=== PATIENT | male | born 1955 | race American Indian/Alaskan Native ===

== ENCOUNTER 2021-04-09 18:24 | Emergency (ER) | payer MEDICARE ==
[2021-04-09 19:41] LABS: Bilirubin,Urine NEG (Negative); Blood,Urine LG (Negative); Color,Urine Yellow (Yellow); Mucus,Urine 3+ /HPF
[2021-04-09 20:13] LABS: Basophils # (Auto) 0.1 K/mm3 (0.0-0.1); Basophils % (Auto) 1.2 % (0.0-1.8); Eosinophils % (Auto) 0.7 % (0.0-4.3); Hematocrit 42.9 % (35.5-45.6); Hemoglobin 14.2 gm/dl (11.8-15.2); Lymphocytes # (Auto) 1.2 K/mm3 (1.2-5.4); Lymphocytes % (Auto) 18.7 % (13.4-35.0); Mean Corpuscular HGB Conc 33 % (32-34); Mean Corpuscular Volume 92 fl (84-94); Monocytes # (Auto) 0.5 K/mm3 (0.0-0.8); Monocytes % (Auto) 8.1 % (0.0-7.3); Platelet Count 182 K/mm3 (140-440); Red Blood Count 4.67 M/mm3 (3.65-5.03); Red Cell Distribution Width 13.1 % (13.2-15.2)
[2021-04-09 20:34] LABS: Alanine Aminotransferase 57 units/L (7-56); Albumin 4.4 g/dL (3.9-5); BUN/Creatinine Ratio 13; Blood Urea Nitrogen 10 mg/dL (9-20); Calcium 10.7 mg/dL (8.4-10.2); Hemolysis Index 7
[2021-04-09] MEDS ORDERED: ONDANSETRON 4 MG/2 ML INJ IV ONE (22:47)
[2021-04-09] MEDS ORDERED: SODIUM CHLORIDE 0.9% 1000 ML 1,000 ML IV ONE (22:47)
[2021-04-09] MEDS ORDERED: TAMSULOSIN 0.4 MG CAP PO ONE (22:47)
[2021-04-09] MEDS ORDERED: MORPHINE 4 MG/1 ML INJ IV ONE (22:47)
[2021-04-09] MEDS ORDERED: KETOROLAC 30 MG/1 ML INJ IV ONE (22:48)
--- NOTE | 2021-04-09 23:37 | Cat Scan Report ---
CT abdomen pelvis w con INDICATION / CLINICAL INFORMATION: Left upper quadrant abdominal pain and tenderness.. TECHNIQUE: Routine CT abdomen and pelvis with IV contrast All CT scans at this location are performed using CT d ose reduction for ALARA by means of automated exposure control. Exam is slightly limited secondary to respiratory motion artifact. COMPARISON: None available. FINDINGS: Abdomen and pelvis: The liver, gallbladder, spleen, pancreas adrenal glands and right kidney appear n ormal. There is a 7 mm calculus within the proximal left ureter causing moderate left hydronephrosis. Small fat-containing periumbilical hernia. The appendix is unremarkable. Sigmoid diverticulosis. The urinary bladder is collapsed. Fat-containing bilateral inguinal hernias. Scattered atherosclerotic c alcification throughout a nondilated abdominal aorta. IMPRESSION: Moderate left hydroureteronephrosis secondary to an obstructive 7 mm calculus within the proximal lef t ureter. Signer Name: Tu Baker MD Signed: 04/09/2021 11:32 PM Workstation Name: [id number]
--- NOTE | 2021-04-10 01:41 | Emergency Department Report ---
ED Abdominal Pain HPI - General Chief Complaint: Urogenital-Male Stated Complaint: LEFT SIDE PAIN Source: patient Mode of arrival: Ambulatory Limitations: No Limitations - History of Present Illness Initial Comments: Patient is a 65-year-old -[place] male with a history of hypertension, chronic osteoarthritis and kidney stones who presents to the ED with acute onset persistent severe left flank pain that radiates to the left lower quadrant area with nausea for the last 2 days. Patient states that the pain has been constant and persistent and especially worse in the last 8 hours. Patient denies dysuria, urinary frequency and urgency, hematuria, fever, chills, abdominal pain, chest pain, shortness of breath, cough, traumatic injury, low back pain, numbness and tingling or weakness of lower extremities bilaterally or testicular pain. MD Complaint: abdominal pain, flank pain (Left flank pain) -: Sudden, days(s) (2) Location: suprapubic, L flank Radiation: LLQ, L flank Migration to: LLQ, L flank Severity: severe Severity scale (0 -10): 7 Quality: aching, sharp Consistency: constant Improves With: nothing Worsens With: movement Associated Symptoms: denies other symptoms, nausea, anorexia. denies: vomiting, diarrhea, fever, chills, constipation, dysuria, hematemesis, hematochezia, melena, hematuria - Related Data Previous Rx's Medication Instructions Recorded Last Taken Type Ciprofloxacin HCl 500 mg PO Q12H #20 tablet 04/10/21 Unknown Rx Ketorolac [Toradol] 10 mg PO Q8H PRN #20 tablet 04/10/21 Unknown Rx Ondansetron [Zofran Odt] 4 mg PO Q8HR PRN #15 tab.rapdis 04/10/21 Unknown Rx Tamsulosin [Flomax] 0.4 mg PO QDAY #10 cap 04/10/21 Unknown Rx oxyCODONE /ACETAMINOPHEN [Percocet 1 tab PO Q6HR PRN #12 tablet 04/10/21 Unknown Rx 5/325] Allergies Allergy/AdvReac Type Severity Reaction Status Date / Time No Known Allergies Allergy Verified 04/09/21 18:37 ED Review of Systems ROS: Stated complaint: LEFT SIDE PAIN Other details as noted in HPI Constitutional: denies: chills, fever Eyes: denies: eye pain, eye discharge, vision change ENT: denies: ear pain, throat pain Respiratory: denies: cough, shortness of breath, wheezing Cardiovascular: denies: chest pain, palpitations Endocrine: no symptoms reported Gastrointestinal: abdominal pain (left flank pain), nausea. denies: vomiting, diarrhea Genitourinary: denies: urgency, dysuria Musculoskeletal: back pain (muscle spasm). denies: joint swelling, arthralgia Skin: denies: rash, lesions Neurological: denies: headache, weakness, paresthesias Psychiatric: denies: anxiety, depression Hematological/Lymphatic: denies: easy bleeding, easy bruising ED Past Medical Hx - Past Medical History Hx Hypertension: Yes Hx Arthritis: Yes Hx Kidney Stones: Yes - Medications Home Medications: Home Medications Medication Instructions Recorded Confirmed Last Taken Type Ciprofloxacin HCl 500 mg PO Q12H #20 tablet 04/10/21 Unknown Rx Ketorolac [Toradol] 10 mg PO Q8H PRN #20 tablet 04/10/21 Unknown Rx Ondansetron [Zofran Odt] 4 mg PO Q8HR PRN #15 tab.rapdis 04/10/21 Unknown Rx Tamsulosin [Flomax] 0.4 mg PO QDAY #10 cap 04/10/21 Unknown Rx oxyCODONE /ACETAMINOPHEN [Percocet 1 tab PO Q6HR PRN #12 tablet 04/10/21 Unknown Rx 5/325] ED Physical Exam - General Limitations: No Limitations General appearance: alert, in no apparent distress - Head Head exam: Present: atraumatic, normocephalic, normal inspection - Eye Eye exam: Present: normal appearance, PERRL, EOMI Pupils: Present: normal accommodation - ENT ENT exam: Present: normal exam, normal orophraynx, mucous membranes moist, TM's normal bilaterally, normal external ear exam - Neck Neck exam: Present: normal inspection, full ROM - Respiratory Respiratory exam: Present: normal lung sounds bilaterally. Absent: respiratory distress, wheezes, rales, rhonchi, chest wall tenderness, accessory muscle use, decreased breath sounds - Cardiovascular Cardiovascular Exam: Present: regular rate, normal rhythm, normal heart sounds. Absent: systolic murmur, diastolic murmur, rubs, gallop - GI/Abdominal GI/Abdominal exam: Present: soft, tenderness (Palpable left flank tenderness), normal bowel sounds. Absent: guarding, rebound, hyperactive bowel sounds, hypoactive bowel sounds, organomegaly - Extremities Exam Extremities exam: Present: normal inspection, full ROM, normal capillary refill - Back Exam Back exam: Present: normal inspection, full ROM. Absent: tenderness, CVA tenderness (R), CVA tenderness (L), muscle spasm, paraspinal tenderness, vertebral tenderness - Neurological Exam Neurological exam: Present: alert, oriented X3, CN II-XII intact, normal gait, reflexes normal - Psychiatric Psychiatric exam: Present: normal affect, normal mood - Skin Skin exam: Present: warm, dry, intact, normal color. Absent: rash ED Medical Decision Making - Lab Data Result diagrams: 04/09/21 19:46 04/09/21 19:46 - Radiology Data Radiology results: report reviewed, [place] [address] Cat Scan Report Signed Patient: JAYY WOOD MR#: [id number] : 1955 Acct:[id number] Age/Sex: 65 / M ADM Date: 04/09/21 Loc: ED Attending Dr: Ordering Physician: MALLORY VALE Date of Service: 04/09/21 Procedure(s): CT abdomen pelvis w con Accession Number(s): [id number] cc: MALLORY VALE CT abdomen pelvis w miranda INDICATION / CLINICAL INFORMATION: Left upper quadrant abdominal pain and tenderness.. TECHNIQUE: Routine CT abdomen and pelvis with IV contrast All CT scans at this location are performed using CT dose reduction for ALARA by means of automated exposure control. Exam is slightly limited secondary to respiratory motion artifact. COMPARISON: None available. FINDINGS: Abdomen and pelvis: The liver, gallbladder, spleen, pancreas adrenal glands and right kidney appear normal. There is a 7 mm calculus within the proximal left ureter causing moderate left hydronephrosis. Small fat-containing periumbilical hernia. The appendix is unremarkable. Sigmoid diverticulosis. The urinary bladder is collapsed. Fat-containing bilateral in guinal hernias. Scattered atherosclerotic calcification throughout a nondilated abdominal aorta. IMPRESSION: Moderate left hydroureteronephrosis secondary to an obstructive 7 mm calculus within the proximal left ureter. Signer Name: Tu Baker MD Signed: 04/09/2021 11:32 PM Workstation Name: [id number] Transcribed By: BC Dictated By: Tu Baker MD Electronically Authenticated By: Tu Baker MD Signed Date/Time: 04/09/212331 DD/ 29 TD/TT: - Medical Decision Making This is a 65-year-old -[place] male with a history of hypertension, chronic osteoarthritis and kidney stones who presents to the ED with acute onset persistent severe left flank pain that radiates to the left lower quadrant area with nausea for the last 2 days. Patient states that the pain has been constant and persistent and especially worse in the last 8 hours. In the ED, patient is alert and oriented x3 and is not in any distress but appears to be in significant pain. Patient was treated for pain in the ED and also received normal saline 1 L IV bolus x1. Lab test results were reviewed and are all nonactionable except for urinalysis that had significant blood. Abdomen pelvis CT scan with contrast showed moderate left hydroureteronephrosis secondary to an obstructive 7 mm calculus within the proximal left ureter. On reevaluation, patient pain resolved medication. Patient is hemodynamically stable. Patient case was discussed with the ED attending physician Dr. Ramesh who agreed with the plan of care. Patient was discharged home on pain medications and given a referral to Dr. Candelaria the local urologist for follow-up. Patient was advised to contact Dr. Candelaria first thing in the morning on Saturday, April 10, 2021 to schedule a follow-up appointment. Patient was advised to return to the ED immediately if symptoms get worse. - Differential Diagnosis kidney stones; UTI; Diverticulitis; Muscle spasm Critical care attestation.: If time is entered above; I have spent that time in minutes in the direct care of this critically ill patient, excluding procedure time. ED Disposition Clinical Impression: Acute abdominal pain in left flank, Calculus of left kidney Disposition: HOME / SELF CARE / HOMELESS Is pt being admited?: No Does the pt Need Aspirin: No Condition: Stable Instructions: Flank Pain, Adult, [id number], Abdominal Pain, Adult, [id number], Kidney Stones, [id number], Renal Colic, [id number] Additional Instructions: Lab test results were reviewed and are all nonactionable. The abdomen pelvis CT scan with contrast showed left sided 7 mm kidney stone in the proximal left ureter with moderate hydronephrosis. Therefore take medication with food, drink plenty of fluids and follow-up with the urologist Dr. Candelaria in 24 to 48 hours for reevaluation. Contact Dr. Candelaria today Saturday, April 10, 2021 to schedule a follow-up appointment. Return to the ED immediately if symptoms get worse. Prescriptions: Ciprofloxacin HCl 500 mg PO Q12H #20 tablet Tamsulosin [Flomax] 0.4 mg PO QDAY #10 cap oxyCODONE /ACETAMINOPHEN [Percocet 5/325] 1 tab PO Q6HR PRN #12 tablet PRN Reason: Pain Ketorolac [Toradol] 10 mg PO Q8H PRN #20 tablet PRN Reason: Pain Ondansetron [Zofran Odt] 4 mg PO Q8HR PRN #15 tab.rapdis PRN Reason: Nausea Referrals: JAQUI CANDELARIA MD [Primary Care Provider] - 3-5 Days SAMM CANDELARIA MD [Staff Physician] - [facility] Time of Disposition: 01:42 Print Language: HUNGARIAN
[2021-04-10 02:30] VITALS: BP 132/87
== END 2021-04-10 02:37 | disposition home or self-care (01) ==
LOC: ED 18:24
DX: N20.0 Calculus of kidney (principal); I10 Essential (primary) hypertension; M19.90 Unspecified osteoarthritis, unspecified site; Z79.899 Other long term (current) drug therapy
CPT/HCPCS: 36415; 74177; 80053; 81001; 83690; 85025; 96361; 96374; 96375; 99284; J1885; J2270; J2405; J7030; Q9967

== ENCOUNTER 2021-05-03 11:47 | Day surgery (SDC) | payer MEDICARE ==
[~2021-05-03 11:47] MED LIST: LACTATED RINGERS 1,000 ML IV SCH; MIDAZOLAM 2 MG/2 ML INJ IV NR
--- NOTE | 2021-05-03 13:15 | Anesthesia Consultation ---
Anesthesia Consult and Med Hx Date of service: 05/03/21 - Airway Anesthetic Teeth Evaluation: Poor, Chipped ROM Head & Neck: Inadequate (decreased extension 2/2 neck pain) Mental/Hyoid Distance: Adequate Mallampati Class: Class III Intubation Access Assessment: Possibly Difficult - Pre-Operative Health Status ASA Pre-Surgery Classification: ASA3 Proposed Anesthetic Plan: General - Pulmonary Hx Smoking: Yes (1/2 PPD X 40 YRS) Hx Respiratory Symptoms: No Hx Sleep Apnea: Yes (+ CPAP) - Cardiovascular System Hx Hypertension: Yes (took amlodipine last night) Hx Heart Attack/AMI: No - Central Nervous System CVA: No - Endocrine Hx Renal Disease: No Hx Liver Disease: No Hx Insulin Dependent Diabetes: No Hx Non-Insulin Dependent Diabetes: No Hx Thyroid Disease: No - Other Systems Hx Obesity: Yes (BMI 40) - Additional Comments Anesthesia Medical History Comments: No hx anesthetic complications.
--- NOTE | 2021-05-03 13:15 | Anesthesia Day of Surgery ---
Anesthesia Day of Surgery - Day of Surgery Patient Examined: Yes Patient H&P Reviewed: Yes Patient is NPO: Yes
[2021-05-03] MEDS ORDERED: HYDROcodone/ACETAMINOPHEN 5-325 MG TAB PO PRN (13:30)
[2021-05-03] MEDS ORDERED: ONDANSETRON 4 MG/2 ML INJ IV PRN (14:00)
--- NOTE | 2021-05-03 15:22 | Post Operative Note ---
Date of procedure: 05/03/21 Pre-op diagnosis: left ureteral stone Post-op diagnosis: same Findings: same Procedure: cysto rpg stent Surgeon: SAMM CANDELARIA Estimated blood loss: none Pathology: none Condition: stable Disposition: PACU
--- NOTE | 2021-05-03 15:23 | Discharge Summary ---
Short Stay Discharge Plan Activity: other (no straining ) Weight Bearing Status: Full Weight Bearing Diet: low fat, low cholesterol, low salt Special Instructions: other (inc fluids ) Durable Medical Equipment Needed Upon Discharge: other (j stent ) Follow up with: JAQUI CANDELARIA MD [Primary Care Provider] - 7 Days SAMM CANDELARIA MD [Staff Physician] - 7 Days
[2021-05-03] MEDS ORDERED: LIDOCAINE MPF (2%) 20 MG/1 ML VIAL 5 ML ONE (15:47)
[2021-05-03] MEDS ORDERED: propofoL 200 MG/20 ML VIAL IV ONE (15:48)
[2021-05-03] MEDS ORDERED: fentaNYL 100 MCG/2 ML INJ ONE (15:48)
[2021-05-03] MEDS ORDERED: ePHEDrine SULFATE 50 MG/1 ML INJ ONE (16:01)
[2021-05-03] MEDS ORDERED: WATER FOR IRRIG STERILE 2000 ML IR ONE (16:14)
[2021-05-03] MEDS ORDERED: IOHEXOL 300 MG/ML 50ML IV ONE (16:15)
--- NOTE | 2021-05-03 16:49 | Post Anesthesia Evaluation ---
- Post Anesthesia Evaluation Patient Participated: Yes Airway Patent: Yes Stable Respiratory Function: Yes Nausea/Vomiting: No Temp > 96.8F: Yes Pain Manageable: Yes Adequeate Hydration: Yes Anesthesia Complications: No
[2021-05-03] MEDS ORDERED: hydrALAZINE 20 MG/1 ML INJ ONE (17:02)
[2021-05-03] MEDS: hydrALAZINE 20 MG/1 ML INJ IV PRN ×2 (17:03→17:35)
[2021-05-03] MEDS: fentaNYL 100 MCG/2 ML INJ IV PRN ×2 (17:10→17:35)
--- NOTE | 2021-05-03 17:20 | Fluoroscopy Report ---
INTRAOPERATIVE FLUOROSCOPY: RETROGRADE UROGRAPHY INDICATION: STONE MANIPULATION AND STENT INSERT. TECHNIQUE: Intraoperative spot images were obtained during the procedure. FINDINGS: There is placement of a double-J left ureteral stent over a wire. No hydronephrosis is seen bilateral ly. No filling defects. Correlate with findings at the time of the procedure. Fluoroscopy Time: 3 minutes. Fluoroscopy Images: 8. Signer Name: Erasmo Lott MD Signed: 05/03/2021 5:15 PM Workstation Name: [id number]
[2021-05-03 18:44] VITALS: BP 166/80
[2021-05-03] MEDS ORDERED: cloNIDine 0.1 MG TAB PO ONE (19:00)
[2021-05-03] MEDS ORDERED: oxyCODONE /ACETAMINOPHEN 5-325MG TAB PO PRN (19:13)
--- NOTE | 2021-05-04 01:52 | Operative Report ---
DATE OF SURGERY: 05/03/2021 PREOPERATIVE DIAGNOSES: Left ureteral stone, severe obesity, stone not visualized on KUB. POSTOPERATIVE DIAGNOSES: Left ureteral stone, severe obesity, stone not visualized on KUB. PROCEDURE: Cystoscopy, bilateral retrograde, left ureteral orifice dilatation with the axial inner sheath, ureteroscopy, double-J stent. SURGEON: Vito Tineo M.D. ANESTHESIA: General. FINDINGS: The patient had a 7 mm stone. He is severely obese. We could not see a stone on KUB. He now presents for cystoscopy. He has intermittent pain. DESCRIPTION OF PROCEDURE: The patient was brought to the operating room and placed on the operating table. Following induction of anesthesia, placed in the lithotomy position, prepped and draped in the usual sterile fashion. 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 A wire coiled in the bladder and we dilated the urethra. Once we got into the bladder, there was minimal trabeculation. Retrograde showed delicate system on both sides. There was no sign of a passed stone. There were no stones in the bladder. The orifice showed no sign of edema. Because of that, we dilated the orifice and placed a flexible scope up to the kidney. We did not see a stone there. No laser was needed. We did not see a stone. The collecting system was not dilated, so the double-J 6-Chinese coiled back on itself in the upper ade. The patient tolerated the procedure well. We left the Councill catheter over a wire, a retrograde on the right showed slightly bifid system with no hydronephrosis. He was brought to recovery in stable condition. The plan will be removal of stent in 2 weeks or perhaps get a CT scan to see whether there is a stone that was missed or in a small calyx, but I did not see a stone in any aspect of the ureter or at the UPJ. TID: [id number] RECEIPT: [id number] JOSSELINE/VAISHNAVI
== END 2021-05-03 20:05 | disposition home or self-care (01) ==
LOC: OR 11:47
PROVIDERS: ATTEND Urology
DX: N20.1 Calculus of ureter (principal); I10 Essential (primary) hypertension; G47.30 Sleep apnea, unspecified; E66.9 Obesity, unspecified; M19.90 Unspecified osteoarthritis, unspecified site; F32.9 Major depressive disorder, single episode, unspecified; F17.210 Nicotine dependence, cigarettes, uncomplicated; Z79.899 Other long term (current) drug therapy; Z98.890 Other specified postprocedural states; Z20.822 Contact with and (suspected) exposure to COVID-19
CPT/HCPCS: 52332; 74420; A4217; C1726; C1758; C1769; C2617; J0360; J0690; J2704; J3010; J7120; Q9967; U0003

== ENCOUNTER 2022-03-09 07:31 | Emergency (ER) | payer MEDICARE ==
[2022-03-09] MEDS ORDERED: ACETAMINOPHEN 500 MG TAB PO ONE (10:40)
[2022-03-09] MEDS ORDERED: TETANUS,DIPH,PERTUSS(ACELL) VACCINE 0.5 ML SYRINGE IM ONE (10:40)
[2022-03-09] MEDS ORDERED: LIDOCAINE (1%) 10 MG/1 ML VIAL 20 ML MDV INFILTRATI ONE (10:40)
--- NOTE | 2022-03-09 12:12 | Emergency Department Report ---
ED Fall HPI - General Chief Complaint: Wound/Laceration Stated Complaint: FELL/HEAD INJURY Source: patient Mode of arrival: Ambulatory - History of Present Illness Initial Comments: Patient is a 66-year-old -Cypriot male with a history of hypertension, [id number] diabetes, chronic osteoarthritis and kidney stones who presents to the ED with complaint of frontal scalp bleeding laceration wound after he tripped on a piece of furniture at home and his right forehead against a table about 2 hours ago. Patient states that the bleeding is well controlled at this time. Patient states that he is not up-to-date with his tetanus vaccinations. Patient denies dizziness, syncope, seizures, nausea and vomiting, change in vision, neck pain, chest pain, back pain, shortness of breath, loss of consciousness or headache. MD Complaint: fall, other (facial laceration) -: hour(s) (2) Fall From: standing When Fall Occurred: 1-3 hours [employer] Fall Witnessed: yes, by family Place Fall Occurred: home Loss of Consciousness: none Prolonged Down Time?: no Symptoms Prior to Fall: none Location: face (frontal scalp laceration) Severity: moderate Severity scale (0 -10): 5 Quality: sharp, aching Context: tripped/slipped Associated Symptoms: denies. denies: headache, neck pain, numbness, weakness, shortness of breath, abdominal pain, hematuria, unable to walk, lightheaded, vertigo, confusion - Related Data Previous Rx's Medication Instructions Recorded Last Taken Type amLODIPine 10 mg PO DAILY #30 tablet 05/24/21 Unknown Rx levoFLOXacin [Levaquin TAB] 750 mg PO Q24HR #7 tablet 05/24/21 Unknown Rx Ibuprofen [Motrin] 800 mg PO Q8HR PRN #20 tablet 03/09/22 Unknown Rx cephALEXin [Keflex] 500 mg PO Q8HR #21 cap 03/09/22 Unknown Rx Allergies Allergy/AdvReac Type Severity Reaction Status Date / Time No Known Allergies Allergy Verified 04/09/21 18:37 ED Review of Systems ROS: Stated complaint: FELL/HEAD INJURY Other details as noted in HPI Constitutional: denies: chills, fever Eyes: denies: eye pain, eye discharge, vision change ENT: other (frontal scalp laceration wound). denies: ear pain, throat pain Respiratory: denies: cough, shortness of breath, wheezing Cardiovascular: denies: chest pain, palpitations Endocrine: no symptoms reported Gastrointestinal: denies: abdominal pain, nausea, vomiting, diarrhea Genitourinary: denies: urgency, dysuria Musculoskeletal: denies: back pain, joint swelling, arthralgia Skin: other (frontal scalp laceration wound). denies: rash, lesions Neurological: denies: headache, weakness, paresthesias Psychiatric: denies: anxiety, depression Hematological/Lymphatic: denies: easy bleeding, easy bruising ED Past Medical Hx - Past Medical History Hx Hypertension: Yes Hx Heart Attack/AMI: No Hx Diabetes: Yes Hx Liver Disease: No Hx Renal Disease: No Hx Arthritis: Yes Hx Kidney Stones: Yes - Surgical History Additional Surgical History: Urinary stent - Social History Smoking Status: Current Every Day Smoker - Medications Home Medications: Home Medications Medication Instructions Recorded Confirmed Last Taken Type amLODIPine 10 mg PO DAILY #30 tablet 05/24/21 Unknown Rx levoFLOXacin [Levaquin TAB] 750 mg PO Q24HR #7 tablet 05/24/21 Unknown Rx Ibuprofen [Motrin] 800 mg PO Q8HR PRN #20 tablet 03/09/22 Unknown Rx cephALEXin [Keflex] 500 mg PO Q8HR #21 cap 03/09/22 Unknown Rx ED Physical Exam - General Limitations: No Limitations General appearance: alert, in no apparent distress - Head Head exam: Present: other (Bleeding 4 cm frontal scalp laceration wound) - Eye Eye exam: Present: normal appearance, PERRL, EOMI Pupils: Present: normal accommodation - ENT ENT exam: Present: normal exam, normal orophraynx, mucous membranes moist, TM's normal bilaterally, normal external ear exam - Neck Neck exam: Present: normal inspection, full ROM. Absent: tenderness - Respiratory Respiratory exam: Present: normal lung sounds bilaterally. Absent: respiratory distress, wheezes, rales, rhonchi, stridor, chest wall tenderness, accessory muscle use, decreased breath sounds - Cardiovascular Cardiovascular Exam: Present: regular rate, normal rhythm, normal heart sounds. Absent: systolic murmur, diastolic murmur, rubs, gallop - GI/Abdominal GI/Abdominal exam: Present: soft, normal bowel sounds. Absent: tenderness, guarding, rebound, hyperactive bowel sounds, hypoactive bowel sounds, organomegaly, mass - Extremities Exam Extremities exam: Present: normal inspection, full ROM, normal capillary refill. Absent: tenderness - Back Exam Back exam: Present: normal inspection, full ROM. Absent: tenderness, CVA tenderness (R), CVA tenderness (L), muscle spasm, paraspinal tenderness, vertebral tenderness - Neurological Exam Neurological exam: Present: alert, oriented X3, CN II-XII intact, normal gait, reflexes normal - Psychiatric Psychiatric exam: Present: normal affect, normal mood - Skin Skin exam: Present: warm, dry, normal color, other (Bleeding 4 cm frontal scalp laceration wound). Absent: intact, rash ED Course Vital Signs 03/09/22 07:42 Temperature 97.5 F L Pulse Rate 82 Respiratory 18 Rate Blood Pressure 134/77 [Left] O2 Sat by Pulse 96 Oximetry - Laceration /Wound Repair Anterior Frontal Wound Location: head (frontal scalp laceration wound) Wound Length (cm): 4 Wound's Depth, Shape: superficial, linear Wound Explored: contaminated Irrigated w/ Saline (ccs): 300 Betadine Prep?: No Anesthesia: 1% Lidocaine Volume Anesthetic (ccs): 5 Wound Debrided: extensive Wound Repaired With: sutures Suture Size/Type: 5:0, proline Number of Sutures: 8 Layer Closure?: No Sterile Dressing Applied?: No Progress: The wound was cleaned extensively with normal saline and lidocaine 1% solution used as a local anesthetic. When anesthesia was fully achieved, the wound was sutured per protocol using Prolene 5-0 sutures for a total of 8 sutures. Patient tolerated the procedure well. The wound was then cleaned and the patient discharged home on medications for pain and prophylactic antibiotics. Patient was advised to return to the ED immediately if symptoms get worse. Patient was otherwise advised to return to the ED or to his primary care physician in 8 to 10 days for suture removal. ED Medical Decision Making - Medical Decision Making This is a 66-year-old -Cypriot male with a history of hypertension, [id number] diabetes, chronic osteoarthritis and kidney stones who presents to the ED with complaint of frontal scalp bleeding laceration wound after he tripped on a piece of furniture at home and his right forehead against a table about 2 hours ago. Patient states that the bleeding is well controlled at this time. Patient states that he is not up-to-date with his tetanus vaccinations. In the ED, patient is alert and oriented x3 and is not in any distress. Patient was treated for pain in the ED and also received booster tetanus vaccinations. The frontal scalp bleeding laceration was cleaned extensively with normal saline and sutured per protocol. Patient tolerated procedure well. Patient will discharge home on pain medication and prophylactic antibiotics and advised to follow-up with his primary care physician in 5 to 7 days for reevaluation or return to the ED immediately if symptoms get worse. Patient was advised to return to the ED or to his primary care physician in 8 to 10 days for suture removal. - Differential Diagnosis Scalp contusion; scalp laceration; facial laceration; facial contusion Critical care attestation.: If time is entered above; I have spent that time in minutes in the direct care of this critically ill patient, excluding procedure time. ED Disposition Clinical Impression: Scalp laceration Qualifiers: Encounter type: initial encounter Qualified Code(s): S01.01XA - Laceration without foreign body of scalp, initial encounter Contusion of scalp Qualifiers: Encounter type: initial encounter Qualified Code(s): S00.03XA - Contusion of scalp, initial encounter Disposition: HOME / SELF CARE / HOMELESS Is pt being admited?: No Does the pt Need Aspirin: No Condition: Stable Instructions: Facial or Scalp Contusion, [id number], Sutured Wound Care, [id number], Sutures, Maura, or Adhesive Wound Closure, [id number], Laceration Care, Adult, [id number] Additional Instructions: Take medication with food, drink plenty of fluids, follow-up with your primary care physician in 7 to 10 days for reevaluation. Return to the ED immediately if symptoms get worse. Otherwise return to the ED or to your primary care physician in 8 to 10 days for suture removal. Prescriptions: cephALEXin [Keflex] 500 mg PO Q8HR #21 cap Ibuprofen [Motrin] 800 mg PO Q8HR PRN #20 tablet PRN Reason: Pain , Severe (7-10) Referrals: [facility] [Other] - 7-10 days Time of Disposition: 12:13 Print Language: SAUDI ARABIAN
[2022-03-09 12:25] VITALS: BP 162/86
== END 2022-03-09 12:31 | disposition home or self-care (01) ==
LOC: ED 07:31
DX: S01.01XA Laceration without foreign body of scalp, initial encounter (principal); I10 Essential (primary) hypertension; E11.9 Type 2 diabetes mellitus without complications; M19.90 Unspecified osteoarthritis, unspecified site; N20.0 Calculus of kidney; F17.200 Nicotine dependence, unspecified, uncomplicated; W18.49XA Other slipping, tripping and stumbling without falling, initial encounter; Y93.89 Activity, other specified; Y92.89 Other specified places as the place of occurrence of the external cause; Y99.8 Other external cause status
CPT/HCPCS: 90471; 90715; 99282

== ENCOUNTER 2022-03-18 11:28 | Emergency (ER) | payer MEDICARE, OTHER ==
[2022-03-18 13:15] VITALS: BP 146/87
--- NOTE | 2022-03-18 13:20 | Emergency Department Report ---
Suture/Staple Removal - [facility] Chief Complaint: Laceration/Recheck/Suture Stated Complaint: STICHES REMOVAL Time Seen by Provider: 03/18/22 13:18 When Sutures or [place] Placed: 8-10 Days Ago Wound Location: Forehead ED Review of Systems ROS: Stated complaint: STICHES REMOVAL Other details as noted in HPI Constitutional: denies: chills, fever Respiratory: denies: cough, shortness of breath, wheezing Cardiovascular: denies: chest pain, palpitations Gastrointestinal: denies: abdominal pain, nausea, diarrhea Genitourinary: denies: urgency, dysuria Musculoskeletal: denies: back pain, joint swelling, arthralgia Skin: denies: rash, lesions Neurological: denies: headache, weakness, paresthesias Psychiatric: denies: anxiety, depression ED Past Medical Hx - Past Medical History Previous Medical History?: Yes Hx Hypertension: Yes Hx Heart Attack/AMI: No Hx Diabetes: Yes Hx Liver Disease: No Hx Renal Disease: No Hx Arthritis: Yes Hx Kidney Stones: Yes - Surgical History Past Surgical History?: Yes Additional Surgical History: Urinary stent - Social History Smoking Status: Current Every Day Smoker Substance Use Type: Marijuana - Medications Home Medications: Home Medications Medication Instructions Recorded Confirmed Last Taken Type amLODIPine 10 mg PO DAILY #30 tablet 05/24/21 Unknown Rx levoFLOXacin [Levaquin TAB] 750 mg PO Q24HR #7 tablet 05/24/21 Unknown Rx Ibuprofen [Motrin] 800 mg PO Q8HR PRN #20 tablet 03/09/22 Unknown Rx cephALEXin [Keflex] 500 mg PO Q8HR #21 cap 03/09/22 Unknown Rx Suture Removal Exam - Exam General: Vital signs noted. No distress. Alert and acting appropriately. Wound: No Pathologic Erythema, No Tenderness, No Drainage, No Pus, No Wound Dehiscence Other Systems: All other systems reviewed and are unremarkable. ED Course Vital Signs 03/18/22 03/18/22 12:14 13:06 Temperature 98.3 F 98.0 F Pulse Rate 76 75 Respiratory 16 15 Rate Blood Pressure 146/87 Blood Pressure 158/89 [Left] O2 Sat by Pulse 95 96 Oximetry ED Recheck MDM - Core Measures AMI Core Measures Followed: Yes - Differential Diagnosis Wound Recheck, Suture/Staple Removal Critical care attestation.: If time is entered above; I have spent that time in minutes in the direct care of this critically ill patient, excluding procedure time. ED Disposition Clinical Impression: Encounter for removal of sutures Disposition: 01 HOME / SELF CARE / HOMELESS Is pt being admited?: No Does the pt Need Aspirin: No Condition: Stable Instructions: Wound Closure Removal, Care After Time of Disposition: 13:20
== END 2022-03-18 13:32 | disposition home or self-care (01) ==
LOC: ED 11:28
DX: S01.81XD Laceration without foreign body of other part of head, subsequent encounter (principal); I10 Essential (primary) hypertension; E11.9 Type 2 diabetes mellitus without complications; M19.90 Unspecified osteoarthritis, unspecified site; F17.200 Nicotine dependence, unspecified, uncomplicated; F12.90 Cannabis use, unspecified, uncomplicated; Z87.442 Personal history of urinary calculi; Z79.899 Other long term (current) drug therapy; X58.XXXD Exposure to other specified factors, subsequent encounter
CPT/HCPCS: 99282